=== PATIENT | male | born 1965 | race Caucasian/White ===

== ENCOUNTER 2020-04-20 17:18 | Inpatient (IN) | payer OTHER ==
--- NOTE | 2020-04-20 18:57 | HP ---
CIWA Score Nausea/Vomitin-Mild Nausea/No Vomiting Muscle Tremors: 4-Moderate,w/Arms Extend Anxiety: 0-No Anxiety, at Ease Agitation: 1-Slight > Activity Paroxysmal Sweats: No Perspiration Orientation: 0-Oriented Tacttile Disturbances: 0-None Auditory Disturbances: 0-None Visual Disturbances: 0-None Headache: 4-Moderately Severe CIWA-Ar Total Score: 10 - Admission Criteria OASAS Guidelines: Admission for Medically Managed Detox: Requires at least one of the followin. CIWA greater than 12 2. Seizures within the past 24 hours 3. Delirium tremens within the past 24 hours 4. Hallucinations within the past 24 hours 5. Acute intervention needed for co occurring medical disorder 6. Acute intervention needed for co occurring psychiatric disorder 7. Severe withdrawal that cannot be handled at a lower level of care (continued vomiting, continued diarrhea, abnormal vital signs) requiring intravenous medication and/or fluids 8. Admission ROS [facility] Allergies/Adverse Reactions: Allergies Allergy/AdvReac Type Severity Reaction Status Date / Time Fish Containing Products Allergy Verified 04/20/20 19:13 latex Allergy Verified 04/20/20 19:13 Penicillins Allergy Verified 04/20/20 19:13 History of Present Illness: 54 y.o. male requesting detox from alcohol use , reports 18 pk beer /day , first age of use 15 , increased since age 31 , reports daily use starts drinking in the mornings , reports tremors , seizures most recently 2 weeks ago went to [facility] . latest use yesterday , went to [facility] yesterday , given Librium in the ER and referred to this facility . Denies significant periods of sobriety . cocaine - yesterday , denies daily use . tobacco : 1 ppd , not interested in NRT PMHX : denies PSHX : denies PSych : denies . Denies SI / HI SHX : lives alone , employed as [employer] prior to COVID 19 Exam Limitations: Clinical Condition - Review of Systems Constitutional: Loss of Appetite EENT: reports: Other (glasses) Respiratory: reports: No Symptoms reported Cardiac: reports: No Symptoms Reported GI: reports: Nausea, Poor Appetite : reports: No Symptoms Reported Musculoskeletal: reports: No Symptoms Reported Integumentary: reports: No Symptoms Reported Neuro: reports: Headache, Seizure, Tremors Hematology: reports: No Symptoms Reported Psychiatric: reports: Orientated x3, Agitated Patient History - Smoking Cessation Smoking history: Current every day smoker Have you smoked in the past 12 months: Yes Hx Chewing Tobacco Use: No Initiated information on smoking cessation: Yes 'Breaking Loose' booklet given: 04/20/20 - Substances abused Alcohol Substance route: Oral Frequency: Daily Amount used: 18 packs of beer Age of first use: 15 Date of last use: 04/20/20 Cocaine Substance route: Inhalation Frequency: No use in 30 days Amount used: 20 dollars Age of first use: 19 Date of last use: 04/20/20 Admission Physical Exam S - Physical General Appearance: Yes: Moderate Distress, Intoxicated, Tremorous, Irritable HEENTM: Yes: EOMI, Hearing grossly Normal, Normocephalic, Normal Voice Respiratory: Yes: Chest Non-Tender, Lungs Clear, Normal Breath Sounds, No Respiratory Distress, No Accessory Muscle Use Neck: Yes: No masses,lesions,Nodules, Trachea in good position Cardiology: Yes: Regular Rhythm, Regular Rate, S1, S2, Tachycardia Abdominal: Yes: Non Tender, Soft Back: Yes: Normal Inspection Musculoskeletal: Yes: Gait Steady Extremities: Yes: Normal Inspection, Normal Range of Motion, Non-Tender, Tremors Neurological: Yes: Fully Oriented, Alert, Motor Strength 5/5, Normal Mood/Affect Integumentary: Yes: Warm - Diagnostic (1) Alcohol withdrawal Current Visit: Yes Status: Acute Qualifiers: Complication of substance-induced condition: uncomplicated Qualified Code(s): F10.230 - Alcohol dependence with withdrawal, uncomplicated Inpatient Rehab Admission - Rehab Decision to Admit Inpatient rehab admission?: No
[2020-04-20] MEDS ORDERED: chlordiazePOXIDE HCL 25 MG CAPSULE PO ONE (19:01)
[2020-04-20] MEDS ORDERED: chlordiazePOXIDE HCL 25 MG CAPSULE PO PRN (19:01)
[2020-04-20] MEDS ORDERED: IBUPROFEN 400 MG TABLET (FP) PO PRN (19:02)
[2020-04-20] MEDS ORDERED: MAGNESIUM CITRATE 300 ML BOTTLE PO PRN (19:02)
[2020-04-20] MEDS ORDERED: NICOTINE POLACRILEX 2 MG GUM BUC PRN (19:02)
[2020-04-20] MEDS ORDERED: hydrOXYzine PAMOATE 25 MG CAPSULE (FP) PO PRN (19:02)
[2020-04-20] MEDS ORDERED: ACETAMINOPHEN 325 MG TABLET (FP) PO PRN ×2 (19:02)
[2020-04-20] MEDS ORDERED: ONDANSETRON *ODT* 4 MG TABLET SL ONE (19:02)
[2020-04-20] MEDS ORDERED: BISMUTH SUBSALICYLATE 524 MG/30 ML UD PO PRN (19:02)
[2020-04-20] MEDS ORDERED: MELATONIN 5 MG TABLETS PO PRN (19:02)
[2020-04-20] MEDS ORDERED: MAG HYDROX/AL HYDROX/SIMETH 30 ML UNIT-DOSE CUP PO PRN (19:02)
[2020-04-20] MEDS ORDERED: MENTHOL/PHENOL 1 EACH UD MM PRN (19:02)
[2020-04-20] MEDS ORDERED: MAGNESIUM HYDROX 2400MG/30ML ORAL SUSPENSION 30 ML CUP PO PRN (19:02)
[2020-04-20] MEDS ORDERED: chlordiazePOXIDE HCL 25 MG CAPSULE ONE (19:12)
[2020-04-20 19:24] VITALS: BMI 31.7
[2020-04-20] MEDS: chlordiazePOXIDE HCL 25 MG CAPSULE PO SCH (22:20)
[2020-04-20] MEDS: THIAMINE HCL 100 MG TABLET (FP) PO SCH (22:20)
[2020-04-21] MEDS: chlordiazePOXIDE HCL 25 MG CAPSULE PO SCH ×4 (06:23→22:14)
--- NOTE | 2020-04-21 09:12 | EKG ---
Test Reason : Blood Pressure : / mmHG Vent. Rate : 071 BPM Atrial Rate : 071 BPM P-R Int : 160 ms QRS Dur : 076 ms QT Int : 384 ms P-R-T Axes : 072 -31 051 degrees QTc Int : 417 ms NORMAL SINUS RHYTHM WITH SINUS ARRHYTHMIA LEFT AXIS DEVIATION ABNORMAL ECG NO PREVIOUS ECGS AVAILABLE Confirmed by Nemesio To ([id number]) on 04/21/2020 9:11:55 AM Referred By: BENJAMIN ODELL Confirmed By:Nemesio To
--- NOTE | 2020-04-21 09:53 | PN ---
S CIWA - CIWA Score Nausea/Vomitin-Mild Nausea/No Vomiting Muscle Tremors: 2 Anxiety: 1-Mildly Anxious Agitation: 1-Slight > Activity Paroxysmal Sweats: 1-Minimal Palms Moist Orientation: 0-Oriented Tacttile Disturbances: 1-Very Mild Itch/Numbness Auditory Disturbances: 0-None Visual Disturbances: 2-Mild Sensitivity Headache: 3-Moderate CIWA-Ar Total Score: 12 BHS Progress Note (SOAP) Subjective: 54 years old male admitted on 04/20/20 for alcohol withdrawal sx management treating with librium detox regiment reports 12/25 headache tylenal 650mg po x 1 feeling nausea after breakfast zofran 8mg sl x 1 Objective: 04/21/20 09:52 Vital Signs - 24 hr 04/20/20 04/20/20 04/20/20 19:17 19:18 20:15 Temperature 98.2 F 98.0 F Pulse Rate 87 71 Respiratory 18 18 Rate Blood Pressure 141/77 128/82 O2 Sat by Pulse 97 96 Oximetry (%) 04/21/20 04/21/20 06:18 08:40 Temperature 97.8 F 97.7 F Pulse Rate 72 92 H Respiratory 16 18 Rate Blood Pressure 119/77 125/71 O2 Sat by Pulse 99 99 Oximetry (%) 04/21/20 09:53 lab pending Assessment: 04/21/20 09:53 alcohol withdrawal Plan: librium regiment
[2020-04-21] MEDS ORDERED: ACETAMINOPHEN 325 MG TABLET (FP) PO ONE (10:15)
[2020-04-21] MEDS ORDERED: ONDANSETRON *ODT* 4 MG TABLET SL ONE (10:15)
[2020-04-21] MEDS: PRENATAL VITAMINS W/ FOLIC ACID TABLET (FP) PO SCH (10:20)
[2020-04-21 12:00] LABS: ALBUMIN 3.5 g/dl (3.4-5.0); BILIRUBIN,TOTAL 0.2 mg/dL (0.2-1); BLOOD UREA NITROGEN 11.5 mg/dL (7-18); CALCIUM 8.9 mg/dL (8.5-10.1); CREATININE 0.8 mg/dL (0.55-1.3); POTASSIUM 4.7 mmol/L (3.5-5.1); TOT PROT 6.6 g/dl (6.4-8.2)
[2020-04-21 12:38] LABS: HEMATOCRIT 45.3 % (35.4-49); HEMOGLOBIN 15.5 GM/dL (11.7-16.9); MCHC 34.1 g/dl (32.0-35.9); MEAN CELL VOLUME 99.7 fl (80-96); MEAN PLT VOLUME 9.8 fl (7.5-11.1); PLATELET COUNT 228 K/MM3 (134-434); RBC 4.55 M/mm3 (4.00-5.60); RDW 13.8 % (11.9-15.9); WHITE BLOOD COUNT 7.6 K/mm3 (4.0-10.0)
[2020-04-21] MEDS: THIAMINE HCL 100 MG TABLET (FP) PO SCH (22:14)
[2020-04-22] MEDS: chlordiazePOXIDE HCL 25 MG CAPSULE PO SCH ×4 (06:04→22:48)
[2020-04-22] MEDS ORDERED: ONDANSETRON *ODT* 4 MG TABLET SL ONE (08:48)
--- NOTE | 2020-04-22 09:53 | PN ---
[facility] CIWA - CIWA Score Nausea/Vomitin-Mild Nausea/No Vomiting Muscle Tremors: 4-Moderate,w/Arms Extend Anxiety: 2 Agitation: 0-Normal Activity Paroxysmal Sweats: 1-Minimal Palms Moist Orientation: 0-Oriented Tacttile Disturbances: 0-None Auditory Disturbances: 0-None Visual Disturbances: 2-Mild Sensitivity Headache: 0-None Present CIWA-Ar Total Score: 10 BHS Progress Note (SOAP) Subjective: 54 years old male admitted on 04/20/20 for alcohol withdrawal sx management treating with librium detox regiment feeling nausea states that stomach discomfort from drinking alcohol for "so long" the nausea will "go away" GI protective measures as discontinue motrin begin pepcide 20 mg po bid Objective: 04/22/20 09:55 Vital Signs - 24 hr 04/21/20 04/21/20 04/21/20 12:40 16:49 21:07 Temperature 97.3 F L 97.8 F 97.8 F Pulse Rate 69 87 82 Respiratory 18 17 18 Rate Blood Pressure 119/73 110/71 136/79 O2 Sat by Pulse 99 96 Oximetry (%) 04/22/20 04/22/20 06:21 08:42 Temperature 97.3 F L 97.3 F L Pulse Rate 67 87 Respiratory 18 20 Rate Blood Pressure 127/70 132/90 O2 Sat by Pulse 99 Oximetry (%) Laboratory Tests 04/20/20 04/21/20 04/21/20 19:20 08:00 08:00 WBC 7.6 RBC 4.55 Hgb 15.5 Hct 45.3 MCV 99.7 H MCH 34.0 H MCHC 34.1 RDW 13.8 Plt Count 228 MPV 9.8 Sodium Potassium Chloride Carbon Dioxide Anion Gap BUN Creatinine Est GFR (CKD-EPI)AfAm Est GFR (CKD-EPI)NonAf Random Glucose Calcium Total Bilirubin AST ALT Alkaline Phosphatase Total Protein Albumin Syphilis Serology Non-reactive COVID-19 (RODRIGO) Not detected 04/21/20 08:00 WBC RBC Hgb Hct MCV MCH MCHC RDW Plt Count MPV Sodium 142 Potassium 4.7 Chloride 110 H Carbon Dioxide 26 Anion Gap 6 L BUN 11.5 Creatinine 0.8 Est GFR (CKD-EPI)AfAm 118.20 Est GFR (CKD-EPI)NonAf 101.99 Random Glucose 98 Calcium 8.9 Total Bilirubin 0.2 AST 33 ALT 110 H Alkaline Phosphatase 93 Total Protein 6.6 Albumin 3.5 Syphilis Serology COVID-19 (RODRIGO) lab noted Assessment: 04/22/20 09:56 alcohol withdrawal mr [facility]el[facility] detox admission denies gi bleeding or gi surgery Plan: librium regiment
[2020-04-22] MEDS: PRENATAL VITAMINS W/ FOLIC ACID TABLET (FP) PO SCH (10:08)
[2020-04-22] MEDS: FAMOTIDINE 20 MG TABLET PO SCH ×2 (12:00→22:47)
[2020-04-22 13:22] VITALS: TEMP 97.1
[2020-04-22] MEDS: THIAMINE HCL 100 MG TABLET (FP) PO SCH (22:47)
[2020-04-23] MEDS ORDERED: chlordiazePOXIDE HCL 10 MG CAPSULE PO PRN
[2020-04-23] MEDS ORDERED: chlordiazePOXIDE HCL 10 MG CAPSULE PO SCH (05:00)
[2020-04-23 09:12] VITALS: BP 104/64; PULSE 65
--- NOTE | 2020-04-23 10:34 | DS ---
[facility] Detox Discharge Summary Admission Date: 04/20/20 Discharge Date: 04/23/20 - History Present History: Alcohol Dependence Additional Comments: 54 y.o. male admitted to detox from alcohol use , reports 18 pk beer /day , first age of use 15 , increased since age 31 , reports daily use starts drinking in the mornings , reports tremors , seizures most recently 2 weeks ago went to [facility] . latest use yesterday , went to [facility] yesterday , given Librium in the ER and referred to this facility . Denies significant periods of sobriety . cocaine - yesterday , denies daily use . tobacco : 1 ppd , not interested in NRT PMHX : denies PSHX : denies PSych : denies . Denies SI / HI SHX : lives alone , employed as [employer] prior to COVID 19 Laboratory Tests 04/20/20 04/21/20 04/21/20 19:20 08:00 08:00 WBC 7.6 RBC 4.55 Hgb 15.5 Hct 45.3 MCV 99.7 H MCH 34.0 H MCHC 34.1 RDW 13.8 Plt Count 228 MPV 9.8 Sodium Potassium Chloride Carbon Dioxide Anion Gap BUN Creatinine Est GFR (CKD-EPI)AfAm Est GFR (CKD-EPI)NonAf Random Glucose Calcium Total Bilirubin AST ALT Alkaline Phosphatase Total Protein Albumin Syphilis Serology Non-reactive COVID-19 (RODRIGO) Not detected 04/21/20 08:00 WBC RBC Hgb Hct MCV MCH MCHC RDW Plt Count MPV Sodium 142 Potassium 4.7 Chloride 110 H Carbon Dioxide 26 Anion Gap 6 L BUN 11.5 Creatinine 0.8 Est GFR (CKD-EPI)AfAm 118.20 Est GFR (CKD-EPI)NonAf 101.99 Random Glucose 98 Calcium 8.9 Total Bilirubin 0.2 AST 33 ALT 110 H Alkaline Phosphatase 93 Total Protein 6.6 Albumin 3.5 Syphilis Serology COVID-19 (RODRIGO) Vital Signs Temperature 97.1 F L 04/23/20 06:00 Pulse Rate 65 04/23/20 06:00 Respiratory Rate 20 04/23/20 06:00 Blood Pressure 104/64 04/23/20 06:00 O2 Sat by Pulse Oximetry (%) 97 04/23/20 06:00 PE Gnl: WDWN, in no distress MS: nl mentation Coord: nl Gait: steady - Physical Exam Results Vital Signs: Vital Signs Temperature 97.1 F L 04/23/20 06:00 Pulse Rate 65 04/23/20 06:00 Respiratory Rate 20 04/23/20 06:00 Blood Pressure 104/64 04/23/20 06:00 O2 Sat by Pulse Oximetry (%) 97 04/23/20 06:00 - Treatment Hospital Course: Detox Protocol Followed, Detoxed Safely, Responded well, Discharged Condition Good, Rehab Referral Accepted Patient has Accepted a Rehab Referral to: [facility] - Medication Discharge Medications: Ambulatory Orders Ondansetron [Zofran *Odt*] 4 mg SL Q6H PRN #28 tab.rapdis 04/22/20
[2020-04-24] MEDS ORDERED: chlordiazePOXIDE HCL 10 MG CAPSULE PO SCH (05:00)
[2020-04-25] MEDS ORDERED: chlordiazePOXIDE HCL 10 MG CAPSULE PO ONE (05:00)
== END 2020-04-23 08:50 | disposition home or self-care (01) | DRG 775 ==
LOC: YASAS 17:18 → Y3N 19:08
PROVIDERS: ADMIT Allergy & Immunology; ATTEND Allergy & Immunology
PROC: HZ2ZZZZ Detoxification Services for Substance Abuse Treatment (ICD-10-PCS; principal; 2020-04-20)
DX: F10.230 Alcohol dependence with withdrawal, uncomplicated (principal); F17.210 Nicotine dependence, cigarettes, uncomplicated; Z88.0 Allergy status to penicillin; Z91.013 Allergy to seafood; Z91.048 Other nonmedicinal substance allergy status; Z86.69 Personal history of other diseases of the nervous system and sense organs
CPT/HCPCS: 36415; 71046-TC-FY; 80053; 85027; 86780; 93005; 93010; Q0162; U0003